=== PATIENT | female | born 1980 | race African-American/Black ===

== ENCOUNTER 2018-06-29 17:25 | Emergency (ER) | payer OTHER, SELFPAY ==
[2018-06-29 17:31] VITALS: BP 139/85; PULSE 98; RESP 18; TEMP 37.2; O2SAT 96; BMI 20.5
--- NOTE | 2018-06-29 17:51 | DI.RAD.S_ITS ---
PROCEDURE: XR FOOT RT MIN 3V INDICATIONS: right foot pain TECHNIQUE: 3 views of the foot were acquired. COMPARISON: None. FINDINGS: Bones: No fractures or dislocations. No suspicious bony lesions. Soft tissues: No tibiotalar joint effusion. Achilles tendon appears normal. IMPRESSION: No acute bony abnormality of the right foot. Dictated by: Jose Martin Bradshaw M.D. on 06/29/2018 at 19:56 Approved by: Jose Martin Bradshaw M.D. on 06/29/2018 at 19:57
[2018-06-29] MEDS: KETOROLAC 60 MG/2 ML VIAL 30 MG IM (18:36)
--- NOTE | 2018-06-29 18:56 | ED.LOWEXIN ---
HPI - Extremity Injury (Lower) <ARMANDO Kinney - Last Filed: 06/29/18 20:09> General Chief Complaint: Extremity Injury, Lower Stated Complaint: RIGHT FOOT HAS A LUMP/MASS ON IT Time Seen by Provider: 06/29/18 18:10 Source: patient and family Mode of arrival: ambulatory Limitations: no limitations History of Present Illness HPI Narrative: The patient is a 37-year-old female who does not smoke tobacco, who presents with a chief complaint of right foot pain. She states that she had her foot caught under a car 1 week ago She was seen at [facility], was placed in a boot and given crutches. She states that her foot is still swollen on top. She has not taken anything to feel better. She has not applied ice. She is concerned that there is a fracture that was not previously visible and presents requesting x-rays. She does complain of continued bruising. She does have a history of surgery to that ankle. Related Data Allergies Allergy/AdvReac Type Severity Reaction Status Date / Time naproxen Allergy Vomiting Verified 06/29/18 17:39 hydrocodone AdvReac Vomiting Verified 06/29/18 17:39 Review of Systems <LAURA Kinney - Last Filed: 06/29/18 20:09> Review of Systems GENERAL: Denies chills, fatigue, malaise, fever, sweats. HEENT: Denies sinus pain, ear pain, sore throat, difficulty swallowing, dizziness. RESPIRATORY: Denies dyspnea, cough, wheezing, hemoptysis, sputum. CARDIOVASCULAR: Denies chest pain, palpitations, orthopnea, edema, GASTROINTESTINAL: Denies nausea, vomiting, abdominal pain, diarrhea, constipation, melena. : Denies dysuria, frequency, incontinence, hematuria, urinary retention. MUSCULOSKELETAL: See HPI SKIN: See HPI NEUROLOGIC: Denies weakness, headache, numbness, change in speech, confusion, seizures, incoordination. PSYCHIATRIC: No concerning psychosocial issues. 12 point review of systems is negative except for those stated above PFSH <ARMANDO Kinney - Last Filed: 06/29/18 20:09> Social History Smoking Status: Never smoker Social History Smoking Status: Never smoker Exam <ARMANDO Kinney - Last Filed: 06/29/18 20:09> Narrative Exam Narrative: GENERAL: This is a well-nourished, well-developed patient, in mild distress. HEAD: Atraumatic. Normocephalic. No temporal or scalp tenderness. EYES: Pupils equal round and reactive. Extraocular motions intact. No scleral icterus. No injection or drainage. ENT: Nose without bleeding, purulent drainage or septal hematoma. Throat without erythema, tonsillar hypertrophy or exudate. Uvula midline. Airway patent. NECK: Trachea midline. No JVD or lymphadenopathy. Supple, nontender, no meningeal signs. CARDIOVASCULAR: Regular rate and rhythm RESPIRATORY: No cough. No increased respiratory effort. EXTREMITIES: Pain to palpation right foot, especially over the navicular. Capillary refill less than 2 seconds all toes right foot. Positive pedal pulses right foot. BACK: Nontender without deformity or crepitance. No flank tenderness. NEURO: AOx3. SKIN: Slight ecchymosis noted over right navicular Initial Vital Signs Initial Vital Signs: Vital Signs Temperature 98.9 F 06/29/18 17:31 Pulse Rate 98 H 06/29/18 17:31 Respiratory Rate 18 06/29/18 17:31 Blood Pressure 139/85 06/29/18 17:31 Pulse Oximetry 96 06/29/18 17:31 <Heidi Loza DO - Last Filed: 06/30/18 06:17> Initial Vital Signs Initial Vital Signs: Vital Signs Temperature 98.9 F 06/29/18 17:31 Pulse Rate 98 H 06/29/18 17:31 Respiratory Rate 18 06/29/18 17:31 Blood Pressure 139/85 06/29/18 17:31 Pulse Oximetry 96 06/29/18 17:31 Course <SURY Kinney-SWETHA - Last Filed: 06/29/18 20:09> Orders Ordered: Discontinued Medications Ketorolac Tromethamine (Toradol) 30 mg IM NOW ONE Stop: 06/29/18 18:17 Last Admin: 06/29/18 18:36 Dose: 30 mg Vital Signs - 8 hr 06/29/18 17:31 Temperature 98.9 F Pulse Rate 98 H Respiratory Rate 18 Blood Pressure 139/85 Pulse Oximetry 96 <Heidi Loza DO - Last Filed: 06/30/18 06:17> Orders Ordered: Discontinued Medications Ketorolac Tromethamine (Toradol) 30 mg IM NOW ONE Stop: 06/29/18 18:17 Last Admin: 06/29/18 18:36 Dose: 30 mg Vital Signs - 8 hr 06/29/18 17:31 Temperature 98.9 F Pulse Rate 98 H Respiratory Rate 18 Blood Pressure 139/85 Pulse Oximetry 96 [facility] - Extremity Injury (Lower) <SURY Kinney-BC - Last Filed: 06/29/18 20:09> Imaging Data foot xray : Radiologist's impression: [address] [address] XRay Report Signed Patient: ROSALINA ROBERTSON [facility]#: [id number] : 1980Acct:[id number] Age/Sex: 37 / FDate of Service: 06/29/18 Loc: ED Accession Number: [id number] Procedure: XR foot RT min 3V Ordering Provider: Catrachito Alvarado D.O. PROCEDURE: XR FOOT RT MIN 3V INDICATIONS: right foot pain TECHNIQUE: 3 views of the foot were acquired. COMPARISON: None. FINDINGS: Bones: No fractures or dislocations. No suspicious bony lesions. Soft tissues: No tibiotalar joint effusion. Achilles tendon appears normal. IMPRESSION: No acute bony abnormality of the right foot. Dictated by: Jose Martin Bradshaw M.D. on 06/29/2018 at 19:56 Approved by: Jose Martin Bradshaw M.D. on 06/29/2018 at 19:57 [facility] Narrative Medical decision making narrative: The patient is a 37-year-old female presents with foot pain after an injury a week ago. She was evaluated at an urgent care, but states she is not improving. X-ray shows no acute fracture. She was given Toradol in the emergency department. Discussed at length rest ice compression elevation as well as [id number] medications as needed and able. Encouraged follow-up with primary care provider in the next few days for new or worsening symptoms. discussed coming back to the emergency department for any acute concerns such as shortness of breath, chest pain or concerns about circulation. Patient has no questions or concerns upon discharge and ambulates steadily outside the department. Discharge Plan Departure Patient Disposition: Home Clinical Impression: Acute foot pain Qualifiers: Laterality: right Qualified Code(s): M79.671 - Pain in right foot Discharge Date/Time: 06/29/18 20:34 Interventions: ED Discharge Assessment Last Done: 06/29/18 20:33 Instructions: How To Perform RICE (Rest, Ice, Compress, Elevate), DI for Foot Pain Activity Restrictions/Additional Instructions: No fracture noted in your x-ray. Please follow up with her primary care provider if worsening or no improvement in the next bit. You may need physical therapy or further workup. In the meantime please use rest ice compression elevation as well as [id number]-[id number] pain medications as needed and able. Please come back to emergency department for acute concerns including shortness of breath, chest pain or concerns about circulation. Referrals: [facility] [Provider Group] <Heidi Loza DO - Last Filed: 06/30/18 06:17> Cosign ED Attending Johanne Attestation: I was immediately available in the department for consultation. Documentation has been reviewed. I agree with assessment and plan.
--- NOTE | 2018-06-29 18:59 | ED_ITS ---
HPI - Extremity Injury (Lower) <ARMANDO Kinney - Last Filed: 06/29/18 20:09> General Chief Complaint: Extremity Injury, Lower Stated Complaint: RIGHT FOOT HAS A LUMP/MASS ON IT Time Seen by Provider: 06/29/18 18:10 Source: patient and family Mode of arrival: ambulatory Limitations: no limitations History of Present Illness HPI Narrative: The patient is a 37-year-old female who does not smoke tobacco, who presents with a chief complaint of right foot pain. She states that she had her foot caught under a car 1 week ago She was seen at [place] urgent care, was placed in a boot and given crutches. She states that her foot is still swollen on top. She has not taken anything to feel better. She has not applied ice. She is concerned that there is a fracture that was not previously visible and presents requesting x-rays. She does complain of continued bruising. She does have a history of surgery to that ankle. Related Data Allergies Allergy/AdvReac Type Severity Reaction Status Date / Time naproxen Allergy Vomiting Verified 06/29/18 17:39 hydrocodone AdvReac Vomiting Verified 06/29/18 17:39 Review of Systems <LAURA Kinney - Last Filed: 06/29/18 20:09> Review of Systems GENERAL: Denies chills, fatigue, malaise, fever, sweats. HEENT: Denies sinus pain, ear pain, sore throat, difficulty swallowing, dizziness. RESPIRATORY: Denies dyspnea, cough, wheezing, hemoptysis, sputum. CARDIOVASCULAR: Denies chest pain, palpitations, orthopnea, edema, GASTROINTESTINAL: Denies nausea, vomiting, abdominal pain, diarrhea, constipation, melena. : Denies dysuria, frequency, incontinence, hematuria, urinary retention. MUSCULOSKELETAL: See HPI SKIN: See HPI NEUROLOGIC: Denies weakness, headache, numbness, change in speech, confusion, seizures, incoordination. PSYCHIATRIC: No concerning psychosocial issues. 12 point review of systems is negative except for those stated above PFSH <ARMANDO Kinney - Last Filed: 06/29/18 20:09> Social History Smoking Status: Never smoker Social History Smoking Status: Never smoker Exam <ARMANDO Kinney - Last Filed: 06/29/18 20:09> Narrative Exam Narrative: GENERAL: This is a well-nourished, well-developed patient, in mild distress. HEAD: Atraumatic. Normocephalic. No temporal or scalp tenderness. EYES: Pupils equal round and reactive. Extraocular motions intact. No scleral icterus. No injection or drainage. ENT: Nose without bleeding, purulent drainage or septal hematoma. Throat without erythema, tonsillar hypertrophy or exudate. Uvula midline. Airway patent. NECK: Trachea midline. No JVD or lymphadenopathy. Supple, nontender, no meningeal signs. CARDIOVASCULAR: Regular rate and rhythm RESPIRATORY: No cough. No increased respiratory effort. EXTREMITIES: Pain to palpation right foot, especially over the navicular. Capillary refill less than 2 seconds all toes right foot. Positive pedal pulses right foot. BACK: Nontender without deformity or crepitance. No flank tenderness. NEURO: AOx3. SKIN: Slight ecchymosis noted over right navicular Initial Vital Signs Initial Vital Signs: Vital Signs Temperature 98.9 F 06/29/18 17:31 Pulse Rate 98 H 06/29/18 17:31 Respiratory Rate 18 06/29/18 17:31 Blood Pressure 139/85 06/29/18 17:31 Pulse Oximetry 96 06/29/18 17:31 <Heidi Loza DO - Last Filed: 06/30/18 06:17> Initial Vital Signs Initial Vital Signs: Vital Signs Temperature 98.9 F 06/29/18 17:31 Pulse Rate 98 H 06/29/18 17:31 Respiratory Rate 18 06/29/18 17:31 Blood Pressure 139/85 06/29/18 17:31 Pulse Oximetry 96 06/29/18 17:31 Course <SURY Kinney-SWETHA - Last Filed: 06/29/18 20:09> Orders Ordered: Discontinued Medications Ketorolac Tromethamine (Toradol) 30 mg IM NOW ONE Stop: 06/29/18 18:17 Last Admin: 06/29/18 18:36 Dose: 30 mg Vital Signs - 8 hr 06/29/18 17:31 Temperature 98.9 F Pulse Rate 98 H Respiratory Rate 18 Blood Pressure 139/85 Pulse Oximetry 96 <Heidi Loza DO - Last Filed: 06/30/18 06:17> Orders Ordered: Discontinued Medications Ketorolac Tromethamine (Toradol) 30 mg IM NOW ONE Stop: 06/29/18 18:17 Last Admin: 06/29/18 18:36 Dose: 30 mg Vital Signs - 8 hr 06/29/18 17:31 Temperature 98.9 F Pulse Rate 98 H Respiratory Rate 18 Blood Pressure 139/85 Pulse Oximetry 96 [facility] - Extremity Injury (Lower) <SURY Kinney-BC - Last Filed: 06/29/18 20:09> Imaging Data foot xray : Radiologist's impression: [address] [address] XRay Report Signed Patient: ROSALINA ROBERTSON [facility]#: [id number] : 1980Acct:[id number] Age/Sex: 37 / FDate of Service: 06/29/18 Loc: ED Accession Number: [id number] Procedure: XR foot RT min 3V Ordering Provider: Catrachito Alvarado D.O. PROCEDURE: XR FOOT RT MIN 3V INDICATIONS: right foot pain TECHNIQUE: 3 views of the foot were acquired. COMPARISON: None. FINDINGS: Bones: No fractures or dislocations. No suspicious bony lesions. Soft tissues: No tibiotalar joint effusion. Achilles tendon appears normal. IMPRESSION: No acute bony abnormality of the right foot. Dictated by: Jose Martin Bradshaw M.D. on 06/29/2018 at 19:56 Approved by: Jose Martin Bradshaw M.D. on 06/29/2018 at 19:57 [facility] Narrative Medical decision making narrative: The patient is a 37-year-old female presents with foot pain after an injury a week ago. She was evaluated at an urgent care, but states she is not improving. X-ray shows no acute fracture. She was given Toradol in the emergency department. Discussed at length rest ice compression elevation as well as venl-dhq-[id number] medications as needed and able. Encouraged follow-up with primary care provider in the next few days for new or worsening symptoms. discussed coming back to the emergency department for any acute concerns such as shortness of breath, chest pain or concerns about circulation. Patient has no questions or concerns upon discharge and ambulates steadily outside the department. Discharge Plan Departure Patient Disposition: Home Clinical Impression: Acute foot pain Qualifiers: Laterality: right Qualified Code(s): M79.671 - Pain in right foot Discharge Date/Time: 06/29/18 20:34 Interventions: ED Discharge Assessment Last Done: 06/29/18 20:33 Instructions: How To Perform RICE (Rest, Ice, Compress, Elevate), DI for Foot Pain Activity Restrictions/Additional Instructions: No fracture noted in your x-ray. Please follow up with her primary care provider if worsening or no improvement in the next bit. You may need physical therapy or further workup. In the meantime please use rest ice compression elevation as well as [id number] pain medications as needed and able. Please come back to emergency department for acute concerns including shortness of breath, chest pain or concerns about circulation. Referrals: [facility] [Provider Group] <Heidi Loza DO - Last Filed: 06/30/18 06:17> Cosign ED Attending Johanne Attestation: I was immediately available in the department for consultation. Documentation has been reviewed. I agree with assessment and plan.
[2018-06-29 20:32] VITALS: BP 113/74; PULSE 79; RESP 16; O2SAT 100
== END 2018-06-29 20:34 | disposition home or self-care (01) ==
PROVIDERS: Emergency Provider Nurse Practitioner Family
DX: M79.671 Pain in right foot (principal)
CPT/HCPCS: 73630; 96372; 99282; 99283; J1885

== ENCOUNTER 2018-09-17 07:14 | Emergency (ER) | payer OTHER, SELFPAY ==
[2018-09-17 07:14] VITALS: BP 116/81; PULSE 81; RESP 18; TEMP 37.2; O2SAT 100; BMI 19.6
--- NOTE | 2018-09-17 07:47 | ED_ITS ---
HPI - Eye Problem General Chief complaint: Eye Problems Stated complaint: Swollen eye Time Seen by Provider: 09/17/18 07:32 Source: patient Mode of arrival: ambulatory Limitations: no limitations History of Present Illness HPI Narrative: The patient is a 38-year-old female who presents with left upper eye lid swelling. She says whenever last couple of days this morning she thought it was worse. She actually does not have any visual change changes no eye discharge. No fever it is not really erythematous. chief complaint: eye pain Onset (ago): day(s) (7) Onset description: unknown Location: left eye Place: home Related Data Allergies Allergy/AdvReac Type Severity Reaction Status Date / Time naproxen Allergy Vomiting Verified 09/17/18 07:23 hydrocodone AdvReac Vomiting Verified 09/17/18 07:23 Review of Systems Review of Systems ROS Unobtainable: All systems reviewed & are unremarkable except as noted in HPI and below Constitutional Denies chills, Denies fever(s), Denies lethargy and Denies weakness Eyes Reports as per HPI and Reports eye pain ENT Ears, Nose, Mouth, and Throat: Denies change in voice, Denies neck pain and Denies sore throat Cardiovascular Denies chest pain, Denies irregular heart rhythm, Denies lightheadedness, Denies palpitations, Denies dyspnea, Denies dyspnea on exertion and Denies orthopnea Respiratory Denies cough, Denies dyspnea, Denies dyspnea on exertion and Denies wheezing Musculoskeletal Denies neck pain Integumentary/Breasts Denies pruritus, Denies erythema, Denies rash and Denies wounds Neurologic Denies weakness Endocrine Denies palpitations Allergic/Immunologic Denies wheezing [facility] Medical History Patient denies significant medical history (Acute) Social History Smoking Status: Never smoker Social History Smoking Status: Never smoker Exam Initial Vital Signs Initial Vital Signs: Vital Signs Temperature 98.9 F 09/17/18 07:14 Pulse Rate 81 09/17/18 07:14 Respiratory Rate 18 09/17/18 07:14 Blood Pressure 116/81 09/17/18 07:14 Pulse Oximetry 100 09/17/18 07:14 GENERAL: Well-appearing, well-nourished and in no acute distress. CARDIOVASCULAR: peripheral pulses in tact, cap refill <2 sec RESPIRATORY: No respiratory distress, speaks in full sentences without difficulty EXTREMITIES: Normal range of motion, no clubbing or edema. Neurovascularly intact NEUROLOGICAL: Cranial nerves II through XII grossly intact. Normal gait and speech. SKIN: Warm, dry, no petechiae, no rashes or lesions. Eyes Eyelids: eyelid abnormality left upper eyelid swelling and tenderness; without erythema and without lacerations Sclera: sclerae normal Cornea: corneas normal Pupils: PERRL Course Vital Signs - 8 hr 09/17/18 07:14 Temperature 98.9 F Pulse Rate 81 Respiratory Rate 18 Blood Pressure 116/81 Pulse Oximetry 100 Discharge Plan Departure Patient Disposition: Home Clinical Impression: Hordeolum externum (stye) Qualifiers: Laterality: left Eyelid: upper Qualified Code(s): H00.014 - Hordeolum externum left upper eyelid Discharge Date/Time: 09/17/18 08:01 Interventions: ED Discharge Assessment Last Done: 09/17/18 08:01 Instructions: DI for Hordeolum Activity Restrictions/Additional Instructions: *You have been diagnosed with left eye stye *What to do: Warm compresses 20-30 minutes 1 to 2 times a day. At this time no antibiotics indicated. *Continue to take medications as directed *Follow up with your primary care provider in 2-3 days *Return to ER if you should have redness around the eye or in the eye gross discharge from the eye visual changes, fever or any new, worsening or concerning symptoms Referrals: [facility] [Provider Group]
== END 2018-09-17 08:01 | disposition home or self-care (01) ==
PROVIDERS: Emergency Provider Emergency Medicine
DX: H00.014 Hordeolum externum left upper eyelid (principal)
CPT/HCPCS: 99282; 99283